=== PATIENT | female | born 1970 | race Caucasian/White ===

== ENCOUNTER 2017-05-02 03:25 | Emergency (ER) | payer MEDICARE, OTHER ==
[~2017-05-02] VITALS: Ht 162.6 cm; Wt 173.7 kg
[~2017-05-02 03:25] MED LIST: ALBUTEROL1.25 MG/3 INH; AMOX TR-K CLV1 EAC1 PO; BACLOFEN10 MG PO; CIPROFLOXACIN500 MG PO; DUONEB 0.5 MG-33 ML; FENTANYL1 EAC2 TD; FEROSUL325 MG PO; GLIMEPIRIDE2 MG PO; LASIX40 MG PO; LISINOPRIL10 MG PO; LISINOPRIL5 MG PO; MELOXICAM7.5 MG PO; METFORMIN HCL500 MG PO; MORPHINE SULFAT15 M1 PO; NEURONTIN100 MG PO; NEXIUM40 MG PO; NORCO; NORCO 10-325 T1 EACH PO; NORVASC5 MG PO; OXYBUTYNIN CHLOR5 MG PO; PAXIL CR25 MG PO; POLYETHYLENE GL17 GM PO; POTASSIUM CHLO10 ME1 PO; PRAVASTATIN SOD10 MG PO; PROAIR HFA INH8.5 GM INH; PROVENTIL HFA6.7 GM INH; RESCUE; SYMBICORT 16010.2 GM INH; TYLENOL # 31 EA PO; VICODIN PO; VITAMIN D250000 UNIT PO; ZOFRAN ODT4 MG PO; [UNRECOGNIZED DRUG - OTHER]
[2017-05-02 04:03] LABS: BILIRUBIN,URINE NEGATIVE (NEGATIVE); CLARITY,URINE CLEAR (CLEAR); COLOR,URINE YELLOW (YELLOW); KETONES,URINE NEGATIVE (NEGATIVE); LEUKOCYTE ESTERASE ,URINE NEGATIVE (NEGATIVE); NITRITE,URINE NEGATIVE (NEGATIVE); PROTEIN,URINE DIPSTICK NEGATIVE (NEGATIVE); URINE UROBILINOGEN 0.2 mg/dL (0.2 - 1)
[2017-05-02 04:04] LABS: PREGNANCY TEST, URINE NEGATIVE (NEGATIVE)
[2017-05-02 04:16] LABS: WBC,URINE (MAN) 0-5 /HPF (0-5)
[2017-05-02 04:17] LABS: AMORPHOUS SEDIMENT,URINE FEW (FEW); BACTERIA,URINE MODERATE /HPF; EPITHELIAL CELLS,URINE RARE /LPF; MUCUS,URINE MANY (RARE); RBC,URINE 0-5 /HPF (0-5)
[2017-05-02] MEDS ORDERED: KETOROLAC TROMETHAMINE 60 MG/2 ML VIAL IM ONE (04:45)
--- NOTE | 2017-05-02 05:47 | Diagnostic Imaging Report ---
EXAM: CT ABDOMEN/PELVIS WO DATE: 05/02/2017 4:39 AM INDICATION: Bilateral flank pain, stone protocol COMPARISON: 04/23/2016 TECHNIQUE: The abdomen and pelvis were scanned using a multidetector helical scanner. Coronal and sagittal reformations were obtained. Routine protocol performed. IV Contrast: None FINDINGS: Lack of IV contrast decreases sensitivity in evaluating abdominal and pelvic organs. In addition, the examination is degraded by body habitus with resulting photon starvation/excessive noise. LOWER THORAX: No consolidations LIVER/BILIARY: Grossly unremarkable. GALLBLADDER: Surgically absent SPLEEN: Unchanged splenic contour. PANCREAS: Unremarkable ADRENALS: No nodules KIDNEYS: No hydronephrosis. No definite stones. GI TRACT: No evidence of obstruction or wall thickening. No abnormal appendix. VESSELS: No significant atherosclerotic calcifications PERITONEUM/RETROPERITONEUM: No free air or fluid LYMPH NODES: No lymphadenopathy REPRODUCTIVE ORGANS/BLADDER: Unremarkable BONES: Degenerative changes about the spine, worse at L5-S1 with osseous foraminal narrowing, and hips. IMPRESSION: Examination degraded by photon starvation/excessive noise. No evidence of obstructive uropathy or other acute abnormality. Signed by: Dr Suzanne Iniguez MD on 05/02/2017 5:44 AM
== END 2017-05-02 06:17 | disposition home or self-care (01) ==
LOC: ER 03:25
DX: R10.9 Unspecified abdominal pain (principal); N94.4 Primary dysmenorrhea; G89.29 Other chronic pain; I10 Essential (primary) hypertension; E11.9 Type 2 diabetes mellitus without complications; J45.909 Unspecified asthma, uncomplicated; F41.9 Anxiety disorder, unspecified
CPT/HCPCS: 74176; 81001; 81025; 87086; 96372; 99283; J1885

== ENCOUNTER → 2019-10-18 | Day surgery (SDC) | payer MEDICARE, OTHER ==
[~2019-10-18] MED LIST changes: -ALBUTEROL1.25 MG/3 INH; +ALBUTEROL1.25 MG/3 NEB; +FARXIGA10 MG PO; +HYOSCYAMINE 0.125 MG TAB ONE; +LYRICA75 MG PO; +MORPHINE SULFAT30 M2 PO; +OZEMPIC0.25 MG/0. SC; +SIMVASTATIN40 MG PO; +ZETIA10 MG PO
[2019-10-18 15:20] VITALS: BP 119/68
--- NOTE | 2019-10-18 16:09 | Operative Report ---
DATE OF PROCEDURE: 10/18/2019 SURGEON: Nafi Kessler MD PROCEDURES: 1. Esophagogastroduodenoscopy with esophageal dilatation and biopsies. 2. Colonoscopy with polypectomy. INDICATIONS FOR EGD: Dysphagia, bloating, nausea. INDICATIONS FOR COLONOSCOPY: Lower abdominal pain, constipation. MEDICATIONS: The patient was done under MAC, please see anesthesiologist's note. PROCEDURE IN DETAIL: With the patient in left lateral decubitus position, flexible fiberoptic Olympus gastroscope was introduced into the esophagus under direct visualization without any difficulty. There was some patchy erythema noted in distal esophagus. There was a mild stricture noted at the GE junction that was dilated to size 52-[place]. The scope was then advanced with ease into the stomach. Mucosa overlying the antrum and the body revealed some patchy erythema and [id number] edema, and biopsies were obtained sent to stain for H pylori. Pylorus was of normal contour and shape, was intubated with ease and the scope was advanced all the way to the second portion of the duodenum. Biopsies were obtained from the proximal second portion and duodenal bulb. The scope was then withdrawn back into the stomach and retroflexed mucosa overlying the fundus and cardia appeared to be within normal limits. The scope was then straightened out it was subsequently withdrawn. The patient tolerated the procedure well. IMPRESSION: 1. Distal esophagitis. 2. Esophagus dilated to size 52-[place]. 3. Gastritis, biopsied, biopsies sent to stain for H pylori. 4. Rule out sprue. PLAN: Follow up histology. Initiate Protonix 40 mg one p.o. q.a.m. before meals. The patient was then turned around after adequate lubrication of the anal canal. A flexible fiberoptic Olympus colonoscope was inserted into the rectum with ease and advanced all the way to the cecum. A minute polyp was removed per cold biopsy forceps from the cecum. Prep overall was suboptimal with some retained fecal material, but visualization was fair. The ascending colon grossly appeared to be within normal limits. Two polyps were hot biopsied from the transverse colon. Four polyps were hot biopsied from the descending colon. Grossly, the sigmoid and rectum appeared to be within normal limits. The scope was then retroflexed into the distal rectum. Small internal hemorrhoids were noted, none of which was actively bleeding. The scope was then straightened out, it was subsequently withdrawn. The patient tolerated the procedure well. IMPRESSION: 1. Suboptimal prep. 2. Transverse colon polyps x2, hot biopsied. 3. Descending colon polyps x4, hot biopsied. 4. Internal hemorrhoids, none actively bleeding. PLAN: Followup histology. Initiate high-fiber, low-fat diet. Initiate high-fiber supplement. The patient might benefit from a followup colonoscopy in 1 to 2 years. We will check TSH. The patient's constipation is most likely opioid induced, and we will discuss with the patient regarding options of therapy. Naif Kessler MD [facility] [place]/[facility] /[id number] cc: Mandeep Allen DO
[2019-10-18 16:13] LABS: % IRON SATURATION 11 % (15-50); IRON 43 ug/dL (50-170); TOTAL IRON BINDING CAPACITY 388 ug/dL (261-478); TRANSFERRIN 277 mg/dL (180-382)
== END | disposition home or self-care (01) ==
LOC: OR 12:08
PROVIDERS: ATTEND Internal Medicine Gastroenterology
DX: D12.4 Benign neoplasm of descending colon (principal); K29.50 Unspecified chronic gastritis without bleeding; K20.9 Esophagitis, unspecified; K63.5 Polyp of colon; K64.8 Other hemorrhoids; Z01.812 Encounter for preprocedural laboratory examination; J45.909 Unspecified asthma, uncomplicated; G47.33 Obstructive sleep apnea (adult) (pediatric); I10 Essential (primary) hypertension; E78.5 Hyperlipidemia, unspecified; E11.9 Type 2 diabetes mellitus without complications; K59.03 Drug induced constipation
CPT/HCPCS: 36415; 43239; 43450; 45378; 45384; 81025; 82607; 83540; 84443; 84466; 85045

== ENCOUNTER → 2020-05-14 | Day surgery (SDC) | payer MEDICARE, OTHER ==
[2020-05-09 11:09] LABS: BASOPHILS % 0.3 % (0.0-1.0); EOSINOPHILS # (AUTO) 0.2 (0.0-0.4); EOSINOPHILS % 2.3 % (0.0-6.0); HEMATOCRIT 35.2 % (34.2-44.1); HEMOGLOBIN 10.9 g/dL (12.0-16.0); LYMPHOCYTES # (AUTO) 2.1 (1.0-3.2); LYMPHOCYTES % 30.8 % (18.0-39.1); MEAN CORPUSCULAR HEMOGLOBIN 26.7 pg (28-32); MEAN CORPUSCULAR VOLUME 86.1 fL (81-99); MONOCYTES # (AUTO) 0.5 (0.2-0.8); MONOCYTES % 7.1 % (4.4-11.3); NEUTROPHILS # (AUTO) 4.1 (2.1-6.9); NEUTROPHILS % 59.2 % (38.7-80.0); PLATELET COUNT 200 x10e3/uL (140-360); RED BLOOD COUNT 4.09 x10e6/uL (3.6-5.1); RED CELL DISTRIBUTION WIDTH 15.9 % (11.7-14.4)
[~2020-05-14] MED LIST changes: +ASPIRIN81 MG PO; -HYOSCYAMINE 0.125 MG TAB ONE; +LIDOCAINE HCL 2% LOCAL INJ 5 ML SDV VIAL INJ ONE; +MULTAQ400 MG PO; +PROPOFOL IV EMULSION 10 MG/ML 20 ML VIAL ONE
[2020-05-14 14:00] VITALS: BP 110/60
== END | disposition home or self-care (01) ==
LOC: OR 10:53
PROVIDERS: ATTEND Internal Medicine Gastroenterology
DX: K20.90 Esophagitis, unspecified without bleeding (principal); K29.60 Other gastritis without bleeding; K21.9 Gastro-esophageal reflux disease without esophagitis; K44.9 Diaphragmatic hernia without obstruction or gangrene; Z86.010 Personal history of colon polyps; K52.1 Toxic gastroenteritis and colitis; G47.33 Obstructive sleep apnea (adult) (pediatric); G62.9 Polyneuropathy, unspecified; M19.90 Unspecified osteoarthritis, unspecified site; J45.909 Unspecified asthma, uncomplicated; I10 Essential (primary) hypertension; E78.5 Hyperlipidemia, unspecified; I48.92 Unspecified atrial flutter; E11.9 Type 2 diabetes mellitus without complications; F41.9 Anxiety disorder, unspecified; Z01.810 Encounter for preprocedural cardiovascular examination; Z01.812 Encounter for preprocedural laboratory examination; Z20.822 Contact with and (suspected) exposure to COVID-19; Z79.82 Long term (current) use of aspirin
CPT/HCPCS: 36415 ×2; 43239; 43450; 81025; 82948; 85025; 93005; U0002; J2001

== ENCOUNTER → 2020-12-02 | Day surgery (SDC) | payer MEDICARE, OTHER ==
[2020-11-29 11:50] LABS: BASOPHILS % 0.2 % (0.0-1.0); EOSINOPHILS # (AUTO) 0.2 (0.0-0.4); EOSINOPHILS % 2.7 % (0.0-6.0); HEMATOCRIT 40.6 % (34.2-44.1); HEMOGLOBIN 12.3 g/dL (12.0-16.0); LYMPHOCYTES # (AUTO) 1.8 (1.0-3.2); LYMPHOCYTES % 29.3 % (18.0-39.1); MEAN CORPUSCULAR HEMOGLOBIN 27.1 pg (28-32); MEAN CORPUSCULAR HGB CONC 30.3 g/dL (31-35); MEAN CORPUSCULAR VOLUME 89.4 fL (81-99); MONOCYTES # (AUTO) 0.5 (0.2-0.8); MONOCYTES % 8.1 % (4.4-11.3); NEUTROPHILS # (AUTO) 3.7 (2.1-6.9); NEUTROPHILS % 59.5 % (38.7-80.0); PLATELET COUNT 199 x10e3/uL (140-360); RED BLOOD COUNT 4.54 x10e6/uL (3.6-5.1); RED CELL DISTRIBUTION WIDTH 15.6 % (11.7-14.4)
[~2020-12-02] MED LIST changes: +FENTANYL CITRATE/PF 100MCG/2 ML INJ ONE; +KETAMINE HCL INJ 50 MG/ML 10 ML VIAL ONE; -LIDOCAINE HCL 2% LOCAL INJ 5 ML SDV VIAL INJ ONE; +MIDAZOLAM HCL 2 MG/2 ML VIAL ONE; -PROPOFOL IV EMULSION 10 MG/ML 20 ML VIAL ONE
[2020-12-02 16:10] VITALS: BP 115/69
== END | disposition home or self-care (01) ==
LOC: OR 12:13
PROVIDERS: ATTEND Internal Medicine Gastroenterology
DX: K29.50 Unspecified chronic gastritis without bleeding (principal); K20.90 Esophagitis, unspecified without bleeding; G47.33 Obstructive sleep apnea (adult) (pediatric); R63.5 Abnormal weight gain; E11.9 Type 2 diabetes mellitus without complications; I10 Essential (primary) hypertension; J45.909 Unspecified asthma, uncomplicated; E78.2 Mixed hyperlipidemia; Z01.810 Encounter for preprocedural cardiovascular examination; Z01.812 Encounter for preprocedural laboratory examination; Z20.822 Contact with and (suspected) exposure to COVID-19; Z79.82 Long term (current) use of aspirin; Z79.84 Long term (current) use of oral hypoglycemic drugs; Z68.45 Body mass index [BMI] 70 or greater, adult
CPT/HCPCS: 36415 ×2; 43239; 43450; 81025; 82948; 85025; 93005; J2250; J3010; U0002